=== PATIENT | male | born 1975 | race Hispanic/Latino ===

== ENCOUNTER 2018-11-08 13:45 | Emergency (ER) | payer OTHER ==
[~2018-11-08] VITALS: Ht 177.8 cm; Wt 104.3 kg
[2018-11-08] MEDS ORDERED: IBUPROFEN 400 MG TAB PO ONE (14:30)
--- NOTE | 2018-11-08 15:27 | Diagnostic Imaging Report ---
EXAM: CHEST 2 VIEWS, PA and lateral DATE: 11/08/2018 Time stamp on exam: 2:28 PM INDICATION: Fever and cough COMPARISON: None FINDINGS: LINES/TUBES: None LUNGS: Bibasilar airspace opacities compatible with atelectasis and/or infiltrate in the correct clinical setting. Follow-up after therapy would be of benefit. PLEURA: No effusions or pneumothorax. HEART AND MEDIASTINUM: Normal size and contour. BONES AND SOFT TISSUES: No acute findings. IMPRESSION: Bibasilar airspace opacities. Signed by: Dr. Keron Goodrich DO on 11/08/2018 3:24 PM
--- NOTE | 2018-11-08 15:45 | NUR ---
DR. GALLEGO AT BEDSIDE TO UPDATE PT ON PLAN OF CARE AND FOLLOW UP CARE, PT VERBALIZED UNDERSTANDING.
[2018-11-08 16:14] VITALS: BP 110/57
== END 2018-11-08 16:15 | disposition home or self-care (01) ==
LOC: ER 13:45
DX: R50.9 Fever, unspecified (principal); R05 Cough
CPT/HCPCS: 71046; 83518; 87070; 87400; 99283

== ENCOUNTER → 2018-12-24 | Outpatient (CLI) | payer OTHER ==
[~2018-12-24] MED LIST: IOPAMIDOL 370 MG/ML 200 ML INFUS..BTL INJ ONE; SODIUM CHLORIDE 0.9% 50ML 50 ML ONE
[2018-12-24 16:59] LABS: BLOOD UREA NITROGEN 12 mg/dL (7-26); BUN/CREATININE RATIO 13 (6-25); CREATININE, SERUM 0.93 mg/dL (0.72-1.25); EST GLOMERULAR FILTRATION RATE > 60 ML/MIN (60-)
--- NOTE | 2018-12-25 09:24 | Diagnostic Imaging Report ---
EXAM: CT chest, abdomen, and Pelvis WITH intravenous contrast INDICATION: Abnormal labs, concern for lymphoma COMPARISON: None. TECHNIQUE: Chest, Abdomen and pelvis were scanned utilizing a multidetector helical scanner from the humeral heads to the pubic symphysis after administration of IV contrast. Coronal and sagittal reformations were obtained. Routine protocol was performed. Scan was performed during portal venous phase. IV CONTRAST: 100mL of Isovue 370 ORAL CONTRAST: Water COMPLICATIONS: None RADIATION DOSE: Total DLP: 1069.9 mGy*cm Dose modulation, iterative reconstruction, and/or weight based adjustment of the mA/kV was utilized to reduce the radiation dose to as low as reasonably achievable. FINDINGS: LINES/ TUBES: None. LUNGS AND AIRWAYS: The central airways are patent. No focal consolidation or pulmonary edema. Left upper lobe and right lower lobe subcentimeter calcified granulomas. PLEURA: No pleural effusion or pneumothorax. HEART AND MEDIASTINUM: Normal thyroid gland. No lymphadenopathy. Heart is not enlarged. No pericardial effusion. This study is not optimized for evaluation for pulmonary embolism, however there are no large pulmonary emboli to the segmental level. HEPATOBILIARY: Hepatic steatosis. 7 mm hypodensity at the hepatic dome is too small to adequately characterize but likely represents a cyst. 1 cm hypodensity at the hilum just inferior to the bifurcation of the right portal vein, possibly also a cyst. No other focal liver lesions. Normal decompressed gallbladder. SPLEEN: No splenomegaly. PANCREAS: No focal masses or ductal dilatation. ADRENALS: No adrenal nodules. KIDNEYS/URETERS: No hydronephrosis, stones, or solid mass lesions. PELVIC ORGANS/BLADDER: Unremarkable. PERITONEUM / RETROPERITONEUM: No free air or fluid. LYMPH NODES: No lymphadenopathy. VESSELS: Unremarkable. GI TRACT: No abnormal bowel wall thickening. No bowel obstruction. Normal appendix. BONES AND SOFT TISSUES: No acute osseous injury. No suspicious lytic or blastic lesions. IMPRESSION: No acute findings in the chest, abdomen or pelvis. Hepatic steatosis. Subcentimeter hepatic hypodensities are too small to adequately characterize but likely represent cysts. Signed by: Alicia Larios MD on 12/25/2018 9:21 AM
== END ==
LOC: CT 15:56
PROVIDERS: ATTEND Internal Medicine Medical Oncology
DX: C85.80 Other specified types of non-Hodgkin lymphoma, unspecified site (principal); C77.1 Secondary and unspecified malignant neoplasm of intrathoracic lymph nodes; C61 Malignant neoplasm of prostate
CPT/HCPCS: 36415; 71260; 74177; 82565; 84520; Q9967

== ENCOUNTER → 2019-01-22 | Outpatient (CLI) | payer OTHER ==
--- NOTE | 2019-01-22 09:02 | Diagnostic Imaging Report ---
Bone survey, 01/22/2019. History: Multiple myeloma. Findings: The soft tissues are normal. Bone mineralization is normal. There is no evidence of fracture or dislocation. There are no lytic or sclerotic lesions. The joint spaces are within normal limits. IMPRESSION: Normal bone survey. Signed by: Tai Cruz on 01/22/2019 8:59 AM
== END ==
LOC: DX 06:53
PROVIDERS: ATTEND Internal Medicine Medical Oncology
DX: C90.00 Multiple myeloma not having achieved remission (principal)
CPT/HCPCS: 77075

== ENCOUNTER → 2019-02-20 | Outpatient (CLI) | payer OTHER ==
[~2019-02-20] MED LIST changes: +GADOBENATE DIMEGLUMINE 1 ML IV ONE; -IOPAMIDOL 370 MG/ML 200 ML INFUS..BTL INJ ONE; -SODIUM CHLORIDE 0.9% 50ML 50 ML ONE
--- NOTE | 2019-02-20 12:04 | Diagnostic Imaging Report ---
History: Multiple myeloma Comparison studies: CT chest 12/24/2018 Technique: Cervical spine: Sagittal T1, T2 and inversion recovery, axial T2 and axial 3-D gradient echo. Post contrast axial and sagittal T1 Thoracic spine: Sagittal T1, T2 and inversion recovery, axial T2. Postcontrast axial and sagittal T1 Lumbar spine: Sagittal T1,T2 and inversion recovery, axial T2 and spin density oblique. Postcontrast axial and sagittal T1. Contrast: 20 cc of MultiHance Findings: Number of lumbar vertebral bodies: 5 Alignment: Normal cervical and lumbar lordosis. Normal thoracic kyphosis. No scoliosis . Soft tissues: No signal abnormalities. . Paraspinal muscles: No signal abnormalities. Well-preserved. No atrophic changes . Spinal cord: Normal in signal and morphology from the foramen magnum through the tip of the conus at L1. Vertebrae: No fractures, infection or neoplasm. Degenerative changes: Cervical spine: Mild disc degeneration with loss of T2 signal at C5-6. Patent canal and foramina Thoracic spine: Patent canal and foramina . Lumbar spine: Patent canal and foramina IMPRESSION: Normal MRI of the cervical thoracic and lumbar spine. No significant canal stenosis or foraminal narrowing. No metastatic disease. Signed by: DR Colt Thomas M.D. on 02/20/2019 12:00 PM
== END ==
LOC: MRI 07:32
PROVIDERS: ATTEND Internal Medicine Medical Oncology
DX: C90.00 Multiple myeloma not having achieved remission (principal)
CPT/HCPCS: 72156; 72157; 72158; A9577